=== PATIENT | female | born 2000 | race Caucasian/White ===

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

== ENCOUNTER 2022-11-04 20:10 | Emergency (ER) | payer BC | END 2022-11-04 23:12 | disposition home or self-care (01) | LOC: ERS 20:10 | DX: M25.561 Pain in right knee (principal) ==

== ENCOUNTER 2023-08-20 10:57 | Outpatient (CLI) | payer BC | END 2023-08-20 10:58 | disposition home or self-care (01) | LOC: BICULT 10:57 | PROVIDERS: ATTEND Nurse Practitioner Family | DX: N63.10 Unspecified lump in the right breast, unspecified quadrant (principal); N63.20 Unspecified lump in the left breast, unspecified quadrant; N64.4 Mastodynia | CPT/HCPCS: 76642 ==